=== PATIENT | female | born 1945 | race Caucasian/White ===

== ENCOUNTER 2018-01-29 06:16 | Day surgery (SDC) | payer MEDICARE, BC ==
[2018-01-29] MEDS ORDERED: PROPOFOL 40 ML (07:37)
== END 2018-01-29 12:09 | disposition home or self-care (01) ==
LOC: GIL 06:16
DX: Z12.11 Encounter for screening for malignant neoplasm of colon (principal); K62.1 Rectal polyp; K64.8 Other hemorrhoids; I10 Essential (primary) hypertension; E78.5 Hyperlipidemia, unspecified
CPT/HCPCS: 45380; 88305